=== PATIENT | female | born 1965 | race Caucasian/White ===

== ENCOUNTER 2018-11-04 12:29 | Emergency (ER) | payer MEDICAID ==
[~2018-11-04] VITALS: Ht 165.1 cm; Wt 77.6 kg
[2018-11-04 15:52] VITALS: BP 136/86
== END 2018-11-04 15:52 | disposition home or self-care (01) ==
LOC: ED 12:29
DX: J04.0 Acute laryngitis (principal)
CPT/HCPCS: 87804; J7512; Q0092

== ENCOUNTER 2020-11-16 12:29 | Emergency (ER) | payer MEDICAID ==
[~2020-11-16] VITALS: Ht 160 cm; Wt 72.6 kg
[2020-11-16 12:52] VITALS: BP 148/78
[2020-11-16] MEDS ORDERED: IBU600 M2 PO (13:32)
[2020-11-16] MEDS ORDERED: AUGMENTIN 875-1 EACH PO (13:32)
[2020-11-16] MEDS ORDERED: ACETAMINOPHEN-H1 TA1 PO (13:35)
== END 2020-11-16 13:59 | disposition home or self-care (01) ==
LOC: ED 12:29
DX: K04.7 Periapical abscess without sinus (principal)